=== PATIENT | female | born 1955 | race Caucasian/White ===

== ENCOUNTER → 2016-05-07 09:22 | Outpatient (CLI) | payer MEDICARE ==
[2016-02-27 08:57] VITALS: BMI 25.6
[~2016-05-07 09:22] MED LIST: ABILIFY10 MG PO; ABILIFY2 MG PO; ALDACTONE25 MG PO; ASCORBIC ACID500 MG PO; BAYER CHEWABLE81 MG PO; BRILINTA90 MG PO; BUPROPION XL300 MG PO; EFFEXOR XR150 MG PO; EFFEXOR37.5 MG PO; FERROUS SULFAT325 MG PO; FOLIC ACID1 MG PO; HYDROCODONE-APA1 TAB PO; K-DUR20 MEQ PO; K-TAB10 MEQ PO; KLONOPIN0.5 MG PO; LASIX20 MG PO; LEVOXYL75 MCG PO; METHOTREXATE2.5 MG PO; NEURONTIN 300300 MG PO; OMEGA 3 FISH OI1 CAP PO; PLAQUENIL200 MG PO; VENTOLIN HFA18 GM INH; VITAMIN C1000 MG PO; VITAMIN D31000 UNI2 PO; VITAMIN D5000 UNIT PO; WELLBUTRIN SR150 MG PO; ZYRTEC10 MG PO
== END | disposition home or self-care (01) ==
LOC: D.RAD 08:45
DX: J90 Pleural effusion, not elsewhere classified (principal)